=== PATIENT | female | born 1955 | race Caucasian/White ===

== ENCOUNTER → 2016-07-16 | Outpatient (CLI) | payer BC | LOC: MW.CHPM 10:44 | PROVIDERS: ATTEND Anesthesiology | DX: Z51.81 Encounter for therapeutic drug level monitoring (principal); Z79.891 Long term (current) use of opiate analgesic | CPT/HCPCS: 80305 ==

== ENCOUNTER → 2016-09-10 | Outpatient (CLI) | payer BC | LOC: MW.CHPM 16:00 | PROVIDERS: ATTEND Family Medicine | DX: E03.9 Hypothyroidism, unspecified (principal); R53.83 Other fatigue | CPT/HCPCS: 36415; 82746; 84439; 84443; 84481 ==

== ENCOUNTER 2017-03-08 14:39 | Emergency (ER) | payer BC ==
[2017-03-08] MEDS ORDERED: Octyl 2-Cyanoacrylate 1 Tube TOP ONE (15:10)
--- NOTE | 2017-03-08 15:10 | EDM.PDOC ---
ED HPI GENERAL MEDICAL PROBLEM - General Chief Complaint: Laceration Stated Complaint: FALL Time Seen by Provider: 03/08/17 15:05 Source of Information: Reports: Patient History Limitations: Reports: No Limitations - History of Present Illness INITIAL COMMENTS - FREE TEXT/NARRATIVE: History of present illness: [61-year-old female comes in complaining status post mechanical fall with subsequent 1.5 cm laceration to right brow region] Review of systems: As per history of present illness and below otherwise all systems reviewed and negative. Past medical history: As per history of present illness and as reviewed below otherwise noncontributory. Surgical history: As per history of present illness and as reviewed below otherwise noncontributory. Social history: No reported history of drug or alcohol abuse. Family history: As per history of present illness and as reviewed below otherwise noncontributory. Physical exam: HEENT: Approx. 1.5cm laceration normocephalic, pupils reactive, negative for conjunctival pallor or scleral icterus, mucous membranes moist, throat clear, neck supple, nontender, trachea midline. Lungs: Clear to auscultation, breath sounds equal bilaterally, chest nontender. Heart: S1S2, regular, negative for clicks, rubs, or JVD. Abdomen: Soft, nondistended, nontender. Negative for masses or hepatosplenomegaly. Negative for costovertebral tenderness. Pelvis: Stable nontender. Genitourinary: Deferred. Rectal: Deferred. Extremities: Atraumatic, negative for cords or calf pain. Neurovascular unremarkable. Neuro: Awake, alert, oriented. Cranial nerves II through XII unremarkable. Cerebellum unremarkable. Motor and sensory unremarkable throughout. Exam nonfocal. Area cleaned with edges approximated well with Steri-Strips and then sealed with Dermabond Laceration to right eye approximately 1.5 cm Diagnostics: [] Therapeutics: [Steri-Strips and Dermabond] Impression: [Mechanical fall] Plan: [Follow-up with primary care] Definitive disposition and diagnosis as appropriate pending reevaluation and review of above. Right Eye Pain Score (Numeric/FACES): 5 - Related Data Allergies Allergy/AdvReac Type Severity Reaction Status Date / Time metoclopramide [From Reglan] Allergy Other Verified 03/08/17 14:54 Home Meds: Home Meds Baclofen [Baclofen] 03/08/17 [History] Cephalexin [Cephalexin] 03/08/17 [History] Diclofenac Epolamine [Flector] 03/08/17 [History] Etanercept [Enbrel] 03/08/17 [History] Hydrochlorothiazide [Hydrochlorothiazide] 03/08/17 [History] LORazepam [LORazepam] 03/08/17 [History] Levalbuterol HCl [Levalbuterol HCl] 03/08/17 [History] Levothyroxine [Levothyroxine] 03/08/17 [History] Pregabalin [Lyrica] 03/08/17 [History] atorvaSTATin Calcium [Atorvastatin Calcium] 03/08/17 [History] Past Medical History HEENT History: Reports: None Cardiovascular History: Reports: None Respiratory History: Reports: None Gastrointestinal History: Reports: None Genitourinary History: Reports: None 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 Oncologic (Cancer) History: Reports: None Dermatologic History: Reports: None - Infectious Disease History Infectious Disease History: Reports: Chicken Pox, Measles, Mumps - Past Surgical History Head Surgeries/Procedures: Reports: None HEENT Surgical History: Reports: Other (See Below) Other HEENT Surgeries/Procedures: partial removal of parathyroid Cardiovascular Surgical History: Reports: None Respiratory Surgical History: Reports: None GI Surgical History: Reports: Cholecystectomy Female Surgical History: Reports: Hysterectomy Endocrine Surgical History: Reports: None Neurological Surgical History: Reports: None Musculoskeletal Surgical History: Reports: Joint Replacement, Knee Replacement Oncologic Surgical History: Reports: None Dermatological Surgical History: Reports: None Social & Family History - Family History Family Medical History: Noncontributory - Tobacco Use Smoking Status *Q: Light Tobacco Smoker Years of Tobacco use: 10 Packs/Tins Daily: 0.5 - Caffeine Use Caffeine Use: Reports: Coffee - Recreational Drug Use Recreational Drug Use: No ED ROS GENERAL - Review of Systems Review Of Systems: See Below (History of present illness) ED EXAM, SKIN/RASH Exam: See Below (History of present illness) Course - Vital Signs Last Recorded V/S: Last Vital Signs Temp 36.1 C 03/08/17 14:57 Pulse 88 03/08/17 14:57 Resp 18 03/08/17 14:57 BP 121/79 03/08/17 14:57 Pulse Ox Departure - Departure Time of Disposition: 15:44 Disposition: Home, Self-Care 01 Condition: Good Clinical Impression: Broken skin - Discharge Information Instructions: Laceration Care, Adult, Rgwr-[id number], Stitches, [place], or Adhesive Wound Closure, [id number] Referrals: Ben Tomlinson [Primary Care Provider] - Additional Instructions: The following information is given to patients seen in the emergency department who are being discharged to home. This information is to outline your options for follow-up care. We provide all patients seen in our emergency department with a follow-up referral. The need for follow-up, as well as the timing and circumstances, are variable depending upon the specifics of your emergency department visit. If you don't have a primary care physician on staff, we will provide you with a referral. We always advise you to contact your personal physician following an emergency department visit to inform them of the circumstance of the visit and for follow-up with them and/or the need for any referrals to a consulting specialist. The emergency department will also refer you to a specialist when appropriate. This referral assures that you have the opportunity for follow-up care with a specialist. All of these measure are taken in an effort to provide you with optimal care, which includes your follow-up. Under all circumstances we always encourage you to contact your private physician who remains a resource for coordinating your care. When calling for follow-up care, please make the office aware that this follow-up is from your recent emergency room visit. If for any reason you are refused follow-up, please contact the [facility] Emergency Department at and asked to speak to the emergency department charge nurse. Follow the directions for wound care is provided Follow-up with primary care provider once 2 days Return to ED as needed as discussed
== END 2017-03-08 16:26 | disposition home or self-care (01) ==
LOC: MW.ED 14:39
DX: S01.111A Laceration without foreign body of right eyelid and periocular area, initial encounter (principal); Z79.899 Other long term (current) drug therapy; W19.XXXA Unspecified fall, initial encounter
CPT/HCPCS: 12011; 99282; 99283

== ENCOUNTER 2017-08-26 09:01 | Day surgery (SDC) | payer SELFPAY, BC ==
[~2017-08-26 09:01] MED LIST: Acetaminophen/HYDROcodone 325-5 MG Tab PO PRN; Bupivacaine 0.25%/EPINEPHrine 1:200,000 10 ML SDV INJECT ONE; Bupivacaine 25%/EPINEPHrine/PF 30 ML ONE; Dexamethasone/Tobramycin 0.1-0.3% Ophth Oint 3.5 GM Tube EYEBOTH SCH; Dexamethasone/Tobramycin 0.1-0.3% Ophth Susp 2.5 ML Bottle ONE; Lactated Ringers 1,000 ML IV SCH; Lidocaine 2% 5 ML SDV ONE; Midazolam 1 MG/ML 2 ML SDV ONE; Octyl 2-Cyanoacrylate 1 Tube ONE; Propofol 200 MG/20 ML SDV ONE; Tetracaine 0.5% Ophth Soln 15 ML Bottle ONE; ceFAZolin 2 GM in Premix Bag 1 BAG IV ONE; ceFAZolin/Dextrose,Iso-Osmotic 2 GM/50 ML Duplex Bag IV ONE; fentaNYL 100 MCG/2 ML SDV ONE
--- NOTE | 2017-08-26 09:29 | PCM.PREANE ---
Preanesthetic Assessment - Anesthesia/Transfusion/Family Hx Anesthesia History: Prior Anesthesia Without Reaction Other Type of Anesthesia Reaction Comment: anxiety Family History of Anesthesia Reaction: No Transfusion History: No Prior Transfusion(s) Intubation History: Unknown - Review of Systems General: No Symptoms Pulmonary: No Symptoms Cardiovascular: No Symptoms Gastrointestinal: No Symptoms Neurological: No Symptoms Other: Reports: None - Physical Assessment O2 Sat by Pulse Oximetry: 94 Respiratory Rate: 16 Vital Signs: Last Vital Signs Temp 36.6 C 08/26/17 09:13 Pulse 80 08/26/17 09:13 Resp 16 08/26/17 09:13 BP 125/56 L 08/26/17 09:13 Pulse Ox 94 L 08/26/17 09:13 Height: 1.7 m Weight: 85.729 kg ASA Class: 2 Mental Status: Alert & Oriented x3 Airway Class: Mallampati = 2 Dentition: Reports: Normal Dentition, Bridge (temporary left upper) Thyro-Mental Finger Breadths: 3 Mouth Opening Finger Breadths: 3 ROM/Head Extension: Full Lungs: Clear to Auscultation, Normal Respiratory Effort Cardiovascular: Regular Rate, Regular Rhythm - Allergies Allergies/Adverse Reactions: Allergies Allergy/AdvReac Type Severity Reaction Status Date / Time metoclopramide [From Reglan] Allergy Anxiety Verified 08/21/17 13:05 - Blood Blood Available: No - Anesthesia Plan Pre-Op Medication Ordered: None - Acknowledgements Anesthesia Type Planned: MAC Pt an Appropriate Candidate for the Planned Anesthesia: Yes Alternatives and Risks of Anesthesia Discussed w Pt/Guardian: Yes Pt/Guardian Understands and Agrees with Anesthesia Plan: Yes PreAnesthesia Questionnaire HEENT History: Reports: Other (See Below) Other HEENT History: wears glasses, psorisis in both eyes Cardiovascular History: Reports: High Cholesterol Other Cardiovascular History: on HCTZ for edema to lower extremities Respiratory History: Reports: None Gastrointestinal History: Reports: None Genitourinary History: Reports: None 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: Musculoskeletal History: Reports: Fibromyalgia, RA Neurological History: Reports: None Psychiatric History: Reports: Anxiety, Depression Endocrine/Metabolic History: Reports: Hypothyroidism Hematologic History: Reports: None Immunologic History: Reports: None Oncologic (Cancer) History: Reports: None Dermatologic History: Reports: Psoriasis - Infectious Disease History Infectious Disease History: Reports: Chicken Pox, Measles, Mumps - Past Surgical History Head Surgeries/Procedures: Reports: None Cardiovascular Surgical History: Reports: None Respiratory Surgical History: Reports: None GI Surgical History: Reports: Appendectomy, Cholecystectomy Female Surgical History: Reports: Breast Reduction, Hysterectomy Endocrine Surgical History: Reports: None Neurological Surgical History: Reports: None Musculoskeletal Surgical History: Reports: Knee Replacement Other Musculoskeletal Surgeries/Procedures:: rt TKA Oncologic Surgical History: Reports: None Dermatological Surgical History: Reports: None Other Surgical History Comment: parathyroid surgery - SUBSTANCE USE Smoking Status *Q: Light Tobacco Smoker Tobacco Use Within Last Twelve Months: Cigarettes Recreational Drug Use History: No - HOME MEDS Home Medications: Home Meds Baclofen 2 tab PO ASDIRECTED PRN 03/08/17 [History] Etanercept [Enbrel] 1 injection IM WEEKLY 03/08/17 [History] Hydrochlorothiazide 25 mg PO DAILY 03/08/17 [History] LORazepam 1 - 2 tab PO ASDIRECTED PRN 03/08/17 [History] Levothyroxine 125 mcg PO DAILY 03/08/17 [History] Pregabalin [Lyrica] 1 tab PO BEDTIME 03/08/17 [History] atorvaSTATin Calcium [Atorvastatin Calcium] 10 mg PO DAILY 03/08/17 [History] Carboxymethylcellulose Sodium [Refresh Tears] 1 drop EYEBOTH ASDIRECTED PRN [History] Desvenlafaxine Succinate [Pristiq] 75 mg PO DAILY 08/21/17 [History] Estrogens, Conjugated [Premarin] 1 tab PO DAILY 08/21/17 [History] Fenofibrate 54 mg PO DAILY 08/21/17 [History] Hydrocodone/Acetaminophen [Hydrocodon-Acetaminophn 10-325] 1 tab PO ASDIRECTED PRN 08/21/17 [History] Levomefolate/B6/B12/Algal Oil [Metanx Capsule] 1 tab PO BEDTIME 08/21/17 [ History] Pregabalin [Lyrica] 75 mg PO ASDIRECTED 08/21/17 [History] - CURRENT (IN HOUSE) MEDS Current Meds: Current Medications Hydrocodone Bitart/Acetaminophen ([place] 325-5 Mg) 1 tab PO Q4H PRN PRN Reason: Pain Lactated Ringer's (Ringers, Lactated) 1,000 mls @ 125 mls/hr IV ASDIRECTED RUAB Last Admin: 05/02/18 09:16 Dose: 125 mls/hr Tobramycin/Dexamethasone (Tobradex Ophth Oint) 0 gm EYEBOTH Q4H RUBA Discontinued Medications Bupivacaine HCl/Epinephrine Bitart (Marcaine 0.25%/Epinephrine 1:200,000) 10 ml INJECT ONETIME ONE Stop: 08/26/17 08:01 Cefazolin Sodium/Dextrose (Ancef) Confirm Administered Dose 2 gm IV .STK-MED ONE Stop: 08/26/17 07:38 Fentanyl (Sublimaze) Confirm Administered Dose 100 mcg .ROUTE .STK-MED ONE Stop: 08/26/17 07:24 Cefazolin Sodium/Dextrose 2 gm (/ Premix) 50 mls @ 100 mls/hr IV ONETIME ONE Stop: 08/26/17 08:29 Bupivacaine HCl/Epinephrine Bitart (Sensorc Mpf 0.25%-Epi 1:[id number]) Confirm Administered Dose 30 mls @ as directed .ROUTE .STK-MED ONE Stop: 08/26/17 07:29 Lidocaine (Xylocaine-Mpf 2%) Confirm Administered Dose 5 ml .ROUTE .STK-MED ONE Stop: 08/26/17 07:24 Midazolam HCl (Versed 1 Mg/Ml) Confirm Administered Dose 2 mg .ROUTE .STK-MED ONE Stop: 08/26/17 07:24 Octyl Cyanoacrylate (Dermabond Advance) Confirm Administered Dose 1 applic .ROUTE .STK-MED ONE Stop: 08/26/17 07:29 Propofol (Diprivan 20 Ml) Confirm Administered Dose 400 mg .ROUTE .STK-MED ONE Stop: 08/26/17 07:24 Tetracaine (Tetracaine 0.5% Ophth Soln) Confirm Administered Dose 15 ml .ROUTE .STK-MED ONE Stop: 08/26/17 07:28 Tobramycin/Dexamethasone (Tobradex Ophth Susp) Confirm Administered Dose 2.5 ml .ROUTE .STK-MED ONE Stop: 08/26/17 07:28
--- NOTE | 2017-08-26 11:12 | PCM.OPNOTE ---
- General Post-Op/Procedure Note Date of Surgery/Procedure: 08/26/17 Operative Procedure(s): bilateral upper lid blepharoplasty for excess skin weighing down lids Pre Op Diagnosis: bilateral upper lid dermatochalasis Post-Op Diagnosis: Same Anesthesia Technique: Local, MAC Primary Surgeon: Micaela Gaines Complications: None Condition: Good Free Text/Narrative:: [id number]
--- NOTE | 2017-08-26 11:13 | PCM48HPAN ---
Post Anesthesia Note - EVALUATION WITHIN 48HRS OF ANESTHETIC Vital Signs in Normal Range: Yes Patient Participated in Evaluation: Yes Respiratory Function Stable: Yes Airway Patent: Yes Cardiovascular Function Stable: Yes Hydration Status Stable: Yes Pain Control Satisfactory: Yes Nausea and Vomiting Control Satisfactory: Yes Mental Status Recovered: Yes Resp Rate: 16 - COMMENTS/OBSERVATIONS Free Text/Narrative:: No anesthesia problems, patient skipped recovery room phase of postoperative care.
--- NOTE | 2017-08-26 11:52 | OR ---
SURGEON: SERGIO PAUL MD DATE OF PROCEDURE: 08/26/2017 PREOPERATIVE DIAGNOSIS: Bilateral upper lid dermatochalasis, weighing down lids. POSTOPERATIVE DIAGNOSIS: Bilateral upper lid dermatochalasis, weighing down lids. PROCEDURE: Bilateral upper lid blepharoplasty for excess skin weighing down lids. PERFORMANCE ANALYST: None. ANESTHESIA: Local mask. INDICATIONS: Ms. Oconnor is a 62-year-old female with bilateral upper eyelid excess skin. This does weigh down the lids and she had a visual field exam as well as photos sent to her insurance company. We are waiting a decision from them. Risks and benefits were discussed with her and she would like to proceed at this time. Risks were including, but not limited to, bleeding, infection, damage to underlying or overlying structures, possible need for future interventions, possible scarring. She does understand the scar and the timeframe for improvement of this. We discussed this thoroughly with the patient. Expectations and outcomes were discussed as well. Very lyla and direct conversations were had on this with the patient. She was in agreement to proceed. PROCEDURE IN DETAIL: After informed consent was obtained and placed on the chart, the patient was brought to the operating theater and laid in supine position. After adequate mask anesthesia was obtained, the area was prepped and draped and a time-out was completed to confirm side and site. The area after being prepped and draped in normal fashion, the caliper was used to tiarra 1 cm of skin between the upper lash margin and the first lower incision line and approximately 1 cm was marked to be removed from each eye with symmetric marking taking care to measure several points to ensure appropriate distance and symmetry. Once adequately marked and confirmed to be appropriate, marking for removal of excess skin with a pinch test, the area was anesthetized with 0.25% Marcaine with epinephrine in a field block. After adequate anesthesia, attention was paid to excision of the excess skin. A 15 blade was used to dissect the skin from the underlying musculature. This was removed and meticulous hemostasis was obtained with contraction of the muscle using Bovie electrocautery. Once this was completed, the single deep 5-0 Monocryl stitch was used and a running 6-0 Prolene stitch was used for the skin. The patient tolerated this well bilaterally and all counts, needles were correct at the end of the case. Symmetry procedures were carried on each side. The wounds then were dressed with TobraDex drops and the Steri-Strip was used to secure the end of the sutures in place with small amount of Mastisol underneath. The patient tolerated this well with minimal bleeding and all counts and needles were correct at the end of the case. FOLLOWUP INSTRUCTIONS: The patient will see us in just a little over a week, sooner if any problems, questions, or concerns. Instructions were given for wound care. She will call with any issues prior. She has home medications to use for pain control if needed. Otherwise, just [id number] medications. DARREN / LARRY /[id number]
== END 2017-08-26 11:23 | disposition home or self-care (01) ==
LOC: MW.SDS 09:01
PROVIDERS: ATTEND Plastic Surgery
DX: H02.834 Dermatochalasis of left upper eyelid (principal); H02.831 Dermatochalasis of right upper eyelid; F17.200 Nicotine dependence, unspecified, uncomplicated; E03.9 Hypothyroidism, unspecified; Z79.899 Other long term (current) drug therapy; F32.9 Major depressive disorder, single episode, unspecified; F41.9 Anxiety disorder, unspecified; E78.00 Pure hypercholesterolemia, unspecified; M19.90 Unspecified osteoarthritis, unspecified site; L40.50 Arthropathic psoriasis, unspecified; G89.29 Other chronic pain; E78.1 Pure hyperglyceridemia
CPT/HCPCS: 15823; A9270; J0690; J2250; J3010; J7120; J2704

== ENCOUNTER 2022-03-05 10:48 | Emergency (ER) | payer BC ==
[2022-03-05] MEDS ORDERED: Sodium Chloride 0.9% 10 ML Syringe FLUSH PRN (11:11)
[2022-03-05] MEDS ORDERED: Sodium Chloride 0.9% 2.5 ML Syringe FLUSH PRN (11:11)
[2022-03-05 11:38] LABS: CARBON DIOXIDE,CO2 25.8 mmol/L (21.0-32.0); POTASSIUM,K 3.1 mmol/L (3.5-5.1)
[2022-03-05] MEDS ORDERED: Iopamidol 755 MG/ML 500 ML Multipack Bottle IVPUSH ONE (12:13)
[2022-03-05] MEDS ORDERED: Morphine 4 MG/ML Syringe IVPUSH ONE (12:22)
[2022-03-05] MEDS ORDERED: Enoxaparin 100 MG/1 ML Syringe SUBCUT ONE (13:13)
== END 2022-03-05 14:41 ==
LOC: MW.ED 10:48
DX: I26.09 Other pulmonary embolism with acute cor pulmonale (principal); E78.00 Pure hypercholesterolemia, unspecified; M06.9 Rheumatoid arthritis, unspecified; E03.9 Hypothyroidism, unspecified; Z79.899 Other long term (current) drug therapy; Z88.8 Allergy status to other drugs, medicaments and biological substances; Z98.890 Other specified postprocedural states
CPT/HCPCS: 36415; 71045; 71275; 80048; 84484; 85025; 85379; 85610; 85730; 93005; 96372; 96374; 99285; J1650; J2270; J3490; Q9967